=== PATIENT | female | born 1935 | race Asian ===

== ENCOUNTER → 2018-05-21 | Outpatient (CLI) | payer MEDICARE, BC | END | disposition home or self-care (01) | LOC: CFH 09:12 | PROVIDERS: ATTEND Orthopaedic Surgery | DX: M75.122 Complete rotator cuff tear or rupture of left shoulder, not specified as traumatic (principal); M47.896 Other spondylosis, lumbar region; M48.061 Spinal stenosis, lumbar region without neurogenic claudication; M48.02 Spinal stenosis, cervical region; M94.212 Chondromalacia, left shoulder; M19.012 Primary osteoarthritis, left shoulder; M54.42 Lumbago with sciatica, left side | CPT/HCPCS: 72100; 72141; 72148 ==

== ENCOUNTER → 2018-07-15 | Outpatient (CLI) | payer MEDICARE, BC | END | disposition home or self-care (01) | LOC: CFH 12:23 | PROVIDERS: ATTEND Physician Assistant Surgical | DX: M50.33 Other cervical disc degeneration, cervicothoracic region (principal); M47.812 Spondylosis without myelopathy or radiculopathy, cervical region; M43.8X6 Other specified deforming dorsopathies, lumbar region | CPT/HCPCS: 72040; 72120 ==

== ENCOUNTER → 2018-09-22 | Outpatient (CLI) | payer MEDICARE, BC | END | disposition home or self-care (01) | LOC: CFH 08:52 | PROVIDERS: ATTEND Physician Assistant Surgical | DX: M51.34 Other intervertebral disc degeneration, thoracic region (principal); G89.29 Other chronic pain; M48.04 Spinal stenosis, thoracic region | CPT/HCPCS: 72072 ==